=== PATIENT | male | born 1995 | race Caucasian/White ===

== ENCOUNTER 2019-07-03 06:32 | Emergency (ER) | payer OTHER ==
[~2019-07-03] VITALS: Ht 195.6 cm; Wt 100.0 kg
[2019-07-03] MEDS ORDERED: KETOROLAC 60 MG/2 ML VIAL (J1885) IM ONE (07:00)
--- NOTE | 2019-07-03 07:41 | REP ---
Lumbar spine five views: Vertebral body heights, interspacing alignment are normal. There is no spondylolysis or spondylolisthesis. The pedicles and facets are unremarkable. The sacroiliac articulations are unremarkable. Impression: Negative lumbar spine. Electronically Signed by Baron Aguilera MD 07/03/2019 07:33 A
[2019-07-03] MEDS ORDERED: MEDR4PAK PO (07:49)
[2019-07-03 07:55] VITALS: BP 130/62
== END 2019-07-03 07:56 | disposition home or self-care (01) ==
LOC: M ED 06:32
DX: S33.5XXA Sprain of ligaments of lumbar spine, initial encounter (principal); S33.6XXA Sprain of sacroiliac joint, initial encounter; M54.31 Sciatica, right side; W19.XXXA Unspecified fall, initial encounter; Y92.139 Unspecified place military base as the place of occurrence of the external cause; Y93.9 Activity, unspecified; Y99.1 Military activity
CPT/HCPCS: 72110; 96372; 99283; J1885

== ENCOUNTER 2019-09-20 10:18 | Emergency (ER) | payer OTHER ==
[~2019-09-20] VITALS: Ht 193 cm; Wt 102.2 kg
[~2019-09-20 10:18] MED LIST: MEDR4PAK PO
[2019-09-20 11:18] LABS: BASO % 0.4 % (0.0-1.0); EOS # 0.1 10^3/uL (0.0-0.5); EOS % 2.6 % (0.0-3.0); HEMATOCRIT 40.9 % (42.0-52.0); HEMOGLOBIN 13.4 g/dl (13.5-17.5); LYMPH # 1.6 10^3/uL (1.5-5.0); LYMPH % 34.3 % (24.0-44.0); MEAN CORPUSCULAR HEMOGLOBIN 29.3 pg (27.0-33.0); MEAN CORPUSCULAR HGB CONC 32.8 g/dl (32.0-36.5); MEAN CORPUSCULAR VOLUME 89.3 fl (80.0-96.0); MONO # 0.5 10^3/uL (0.0-0.8); MONO % 10.9 % (0.0-5.0); NEUTROPHILS # 2.4 10^3/uL (1.5-8.5); NEUTROPHILS % 51.6 % (36.0-66.0); PLATELET COUNT, AUTOMATED 191 10^3/uL (150-450); RED BLOOD COUNT 4.58 10^6/uL (4.30-6.10); WHITE BLOOD COUNT 4.7 10^3/uL (4.0-10.0)
[2019-09-20] MEDS ORDERED: KETOROLAC 30 MG/ML 1ML VIAL IV ONE (12:00)
[2019-09-20 13:38] LABS: APPEARANCE, URINE CLEAR (CLEAR); BACTERIA, URINE AUTO NEGATIVE (NEGATIVE); BILIRUBIN, URINE AUTO NEGATIVE (NEGATIVE); BLOOD, URINE BLOOD NEGATIVE (NEGATIVE); COLOR, URINE YELLOW (YELLOW); GLUCOSE, URINE (UA) AUTO NEGATIVE (NEGATIVE); KETONE, URINE AUTO NEGATIVE (NEGATIVE); LEUKOCYTE ESTERASE, URINE AUTO NEGATIVE (NEGATIVE); MUCUS, URINE SMALL (NEGATIVE); NITRITE, URINE AUTO NEGATIVE (NEGATIVE); PROTEIN, URINE AUTO NEGATIVE (NEGATIVE); RBC, URINE AUTO 2 /HPF (0-3); SPECIFIC GRAVITY URINE AUTO 1.019 (1.002-1.035); SQUAMOUS EPITHELIAL CELL UR AU 0 /HPF (0-6); UROBILINOGEN, URINE AUTO 0.2 mg/dL (0.0-2.0); WBC, URINE AUTO 0 /HPF (0-3)
[2019-09-20] MEDS ORDERED: PRED20TA PO (13:50)
[2019-09-20] MEDS ORDERED: IBUP80TA PO (13:50)
[2019-09-20 13:54] VITALS: BP 136/60
[2019-09-20] MEDS ORDERED: methylPREDNISolone INJ 125 MG/2 ML VIAL (J2930) IV ONE (14:00)
--- NOTE | 2019-09-20 15:19 | REP ---
MRI LUMBAR SPINE WITHOUT CONTRAST: HISTORY: Recurring lower back pain radiating into the right lower extremity. Saddle anesthesia. Comparison radiographs July 03, 2019. TECHNIQUE: Sagittal and axial T1- and T2-weighted scans are acquired in the usual fashion with and without fat saturation. Sequences include spin echo, turbo spin-echo, and STIR imaging sequences. MRI FINDINGS: There is straightening of the normal lumbar lordosis. There is no evidence of spondylolysis or spondylolisthesis. Vertebral body heights are preserved. Cortical and medullary bone signal intensity are normal. No bony destructive lesion is seen. The tip of the conus medullaris is normal in position and appearance at T12-L1. No extra vertebral abnormality is observed. The lumbar disc spaces are preserved in height and signal intensity on T1- and T2-weighted scans at each lumbar level. There is no visible lumbar disc protrusion or abnormal bulge. No spinal stenosis or neural foraminal encroachment is seen on either side. IMPRESSION: Normal MRI study of the lumbar spine. Electronically Signed by Blake Marshall MD 09/20/2019 04:07 P
== END 2019-09-20 14:29 | disposition home or self-care (01) ==
LOC: M ED 10:18
DX: M54.31 Sciatica, right side (principal); M54.17 Radiculopathy, lumbosacral region; G89.29 Other chronic pain; F17.220 Nicotine dependence, chewing tobacco, uncomplicated
CPT/HCPCS: 72148; 80047; 81001; 85025; 96374; 96375; 99284; J1885; J2930

== ENCOUNTER 2019-11-07 19:07 | Emergency (ER) | payer OTHER ==
[~2019-11-07] VITALS: Ht 195.6 cm; Wt 104.5 kg
[2019-11-07 19:07] VITALS: BP 128/65
[~2019-11-07 19:07] MED LIST changes: +IBUP80TA PO; +PRED20TA PO
== END 2019-11-07 20:21 | disposition home or self-care (01) ==
LOC: M ED 19:07
DX: Z03.818 Encounter for observation for suspected exposure to other biological agents ruled out (principal); R07.0 Pain in throat; M54.9 Dorsalgia, unspecified
CPT/HCPCS: 99283; U0003